=== PATIENT | female | born 1960 | race Caucasian/White ===

== ENCOUNTER 2021-10-13 06:13 | Outpatient (REF) | payer MEDICARE, MEDICAID, SELFPAY ==
[2021-10-13 06:33] LABS: MANUAL DIFF FLAG NO
[2021-10-13 07:26] LABS: Basophils Absolute Auto 0.1 X10*3/uL (0.0-0.2); Basophils Percent Auto 0.6 % (0-2); Eosinophils Absolute Auto 0.3 X10*3/uL (0.0-0.4); Eosinophils Percent Auto 3.3 % (0-4); Hematocrit 43.5 % (37.0-47.0); Hemoglobin 13.9 g/dl (12.0-16.0); Imm Gran Abs Auto 0.03 X10*3/uL (0.00-0.03); Imm Gran Pct Auto 0.4 % (0.0-0.4); Lymphocytes Absolute Auto 2.6 X10*3/uL (1.2-4.9); Lymphocytes Percent Auto 32.1 % (20-40); Mean Corpuscular Volume 87.7 fL (80.0-98.0); Mean Platelet Volume 9.9 fL (9.4-12.3); Monocytes Absolute Auto 0.7 X10*3/uL (0.1-1.2); Monocytes Percent Auto 8.1 % (2-11); Neutrophils Absolute Auto 4.4 x10*3/uL (2.0-8.3); Neutrophils Percent Auto 55.5 % (45-73); Platelet Count 387 X10*3/uL (160-400); Red Blood Count 4.96 X10*6/uL (4.20-5.50); Red Cell Distribution Width 13.3 % (11.0-16.0)
[2021-10-13 07:30] LABS: Estimated Average Glucose 189 mg/dL; Hemoglobin A1c % 8.2 %
[2021-10-13 07:50] LABS: Creatinine Urine 202.93 mg/dL; Microalbum/Creatinine Ratio Ur 10.3 ug/mg cr
[2021-10-13 07:54] LABS: Alanine Aminotransferase 42 U/L (0-31); Albumin Level 4.3 g/dL (3.5-5.0); Alkaline Phosphatase 97 U/L (39-117); Anion Gap 14 (12-20); Aspartate Amino Transferase 29 U/L (5-31); Blood Urea Nitrogen 14 mg/dL (9-16); Carbon Dioxide 27 mmol/L (22-29); Chloride 105 mmol/L (96-108); Cholesterol 187 mg/dL; Estimated Glomerular Filt Rate > 60; Glucose Fasting 168 mg/dL (60-99); HDL Cholesterol 43 mg/dL; LDL Cholesterol Calculated 96 mg/dl; Sodium 141 mmol/L (135-145); Total Protein 7.6 g/dL (6.5-8.0); Triglycerides 241 mg/dL
[2021-10-19 15:36] LABS: Levetiracetam Keppra <1.0 mcg/mL (12.0-46.0)
== END 2021-10-13 06:14 | disposition home or self-care (01) ==
LOC: HO.LAB 06:13
PROVIDERS: PCP Nurse Practitioner Family; Visit Provider Nurse Practitioner Family
DX: I10 Essential (primary) hypertension (principal); K21.9 Gastro-esophageal reflux disease without esophagitis; E78.5 Hyperlipidemia, unspecified; E11.9 Type 2 diabetes mellitus without complications; E78.00 Pure hypercholesterolemia, unspecified; Z91.09 Other allergy status, other than to drugs and biological substances; Z51.81 Encounter for therapeutic drug level monitoring; Z79.899 Other long term (current) drug therapy
CPT/HCPCS: 36415; 80053; 80061; 80177; 82043; 83036; 85025

== ENCOUNTER 2024-11-24 09:32 | Outpatient (REF) | payer MEDICARE, SELFPAY ==
[2024-11-24 09:55] LABS: MANUAL DIFF FLAG NO
--- OUTSIDE RECORDS SUMMARY | 2024-11-24 10:41 | XMS_ITS | Clinical Summary ---
Author Organization [facility] [employer] [facility] it Address [address] [place] [address] Care Team Providers Care Radiologic Electronic Specialist Name Role Phone Shyann Valdez MD Primary Care Provider Social History Tobacco Use Types Packs/Day Years Used Date Smoking Tobacco: Never Assessed Comments Unknown Sex and Gender Information Value Date Recorded Sex Assigned at Not on file Legal Sex Female 8:25 AM EST Gender Identity Not on file Sexual Orientation Not on file Plan of Treatment Health Maintenance Due Date Last Done Comments Breast Cancer Screening 1960 Diabetes: Annual GFR (Glomer ular Filtration Rate) 1960 COVID-19 Vaccine (#1) 1963 Diabetes: Annual Foot Exam 02/03/1968 Diabetes: Annual Retina Eye Exam 02/03/1968 DTaP,Tdap,and Td Vaccines (1 - Tdap) 1977 Pneumococcal Vaccine: 50+ Ye ars (1 of 2 - PCV) 1977 Zoster Vaccines (1 of 2) 1977 RSV Immunization Adult Patie nts (1 - Risk 60-74 years 1-dose series) 2018 Cholesterol Screening (Lipid Panel) 07/16/2022 Colorectal Cancer Screening: Colonoscopy 07/16/2022 Depression Screening 07/16/2022 Hepatitis C Screening 07/16/2022 Osteoporosis Screening (Bone Density Screening) 07/16/2022 Social Influencers of Health Screening 07/16/2022 Diabetes: Annual Urine Albumin-Creatinine Ratio (uACR) 08/06/2022 Diabetes: Blood Sugar Contro l Test (HGBA1C) 08/06/2022 Falls Risk Assessment 2023 Influenza Vaccine (Season Ended) 2025 HIB Vaccines Aged Out No longer eligi ble based on patient's age to complete this topic HPV Vaccines Aged Out No longer eligi ble based on patient's age to complete this topic Hepatitis A Vaccines Aged Out No long er eligible based on patient's age to complete this topic Hepatitis B Vaccines Aged Out No long er eligible based on patient's age to complete this topic IPV Vaccines Aged Out No longer eligi ble based on patient's age to complete this topic MMR Vaccines Aged Out No longer eligi ble based on patient's age to complete this topic Meningococcal ACWY Vaccine Aged Out N o longer eligible based on patient's age to complete this topic Meningococcal B Vaccine Aged Out No l onger eligible based on patient's age to complete this topic RSV Immunization Patients Un kymberly 20 months Aged Out No longer eligible b ased on patient's age to complete this topic Varicella Vaccines Aged Out No longer eligible based on patient's age to complete this topic Care Teams Radiologic Electronic Specialist Relationship Specialty Start Date End Date Shyann Valdez MD [address] [place] [address] , [address] [facility] D/B/A: [facility] MOJGAN Bolanos PCP - General Internal Medicine 01/19/17
--- OUTSIDE RECORDS SUMMARY | 2024-11-24 10:41 | XMS_ITS | Clinical Summary ---
Author Organization [facility] Address [address] [place] [address] Care Team Providers Care Residential Manager Name Role Phone Shyann Barrett MD Primary Care Provid er Allergies Active Allergy Reactions Criticality Noted Date Comments Aspirin 02/22/2017 Latex 02/22/2017 Medications Medication Sig Dispensed Refills Start Date End Date Status oxyCODONE-acetaminoph en (PERCOCET) 5-325 MG per tablet Take 1 tablet by mouth every 4 (four) hours as needed for pain. 0 Active glipiZIDE (GLUCOTROL) tablet 10 mg Take 10 mg by mouth 2 (two) times a day before breakfast and dinner. 0 Active clonazePAM (KLONOPIN) 0.5 MG tablet Take 0.5 mg by mouth 2 (two) times a day as needed for anxiety. 0 Active prazosin (MINIPRESS) 2 MG capsule Take 2 mg by mouth every night at bedtime. 0 Active sertraline (ZOLOFT) 50 MG tablet Take 50 mg by mouth daily. 0 Active montelukast (SINGULAIR) 10 MG tablet Take 10 mg by mouth every night at bedtime. 0 Active levETIRAcetam (KEPPRA) 750 MG tablet Take 750 mg by mouth 2 (two) times a day. 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 Seizure disorder 02/22/2017 Anxiety 02/22/2017 Moderate episode of recurrent major depressive d isorder 02/22/2017 Moderate persistent asthma without complication 02/22/2017 Type 2 diabetes mellitus wit hout complication, without long-term current use of insulin 02/22/2017 Social History Tobacco Use Types Packs/Day Years Used Date Smoking Tobacco: Never Smokeless Tobacco: Never Alcohol Use Standard Drinks/Week Comments No 0 (1 standard drink = 0.6 oz pur e alcohol) Sex and Gender Information Value Date Recorded Sex Assigned at Not on file Gender Identity Not on file Sexual Orientation Not on file Last Filed Vital Signs Vital Sign Reading Time Taken Comments Blood Pressure 117/62 02/22/2017 3:08 PM EDT Pulse 69 02/22/2017 3:08 PM EDT Temperature - - Respiratory Rate - - Oxygen Saturation - - Inhaled Oxygen Concentration - - Weight 68.5 kg (151 lb) 02/22/2017 3:08 PM EDT Height 157.5 cm (5' 2 ) 02/22/2017 3:08 PM EDT Body Mass Index 27.62 02/22/2017 3:08 PM EDT Plan of Treatment Health Maintenance Due Date Last Done Comments Hepatitis C Screening 1960 COVID-19 Vaccine (#1) 1963 Pneumococcal Vaccine (1 of 2 - PCV) 02/03/1964 Depression Screening 1970 Preventative Health Evaluation 02/03/1976 DTap / Tdap / Td (1 - Tdap) 1977 Shingrix-Zoster Vaccine (1 of 2) 1977 Colon Cancer Screening (Colonoscopy) 2003 Breast Cancer Screening (Mammogram) 02/03/2008 Fall Risk Assessment 2023 Osteoporosis Screening (DEXA Scan) 2023 Influenza Vaccine (#1) 2024 RSV Adult > 60+ Yrs or Pregn ant (1 - 1-dose 75+ series) 2033 Hepatitis B Vaccines Aged Out No long er eligible based on patient's age to complete this topic RSV Ped < 20 months Aged Out No longe r eligible based on patient's age to complete this topic Care Teams Residential Manager Relationship Specialty Start Date End Date Shyann Barrett MD [address] [place] [address] , [address] [facility] D/B/A: [facility] MOJGAN Bolanos [address] PCP - General Internal Medicine 01/19/17
[2024-11-24 11:04] LABS: Basophils Absolute Auto 0.1 X10*3/uL (0.0-0.2); Basophils Percent Auto 0.7 % (0-2); Eosinophils Absolute Auto 0.2 X10*3/uL (0.0-0.4); Eosinophils Percent Auto 2.7 % (0-4); Hematocrit 40.1 % (37.0-47.0); Hemoglobin 13.1 g/dl (12.0-16.0); Imm Gran Abs Auto 0.01 X10*3/uL (0.00-0.03); Imm Gran Pct Auto 0.1 % (0.0-0.4); Lymphocytes Absolute Auto 2.7 X10*3/uL (1.2-4.9); Mean Corpuscular HGB Conc 32.7 g/dl (31.0-35.0); Mean Corpuscular Hemoglobin 28.6 pg (27.0-33.0); Mean Corpuscular Volume 87.6 fL (80.0-98.0); Mean Platelet Volume 9.8 fL (9.4-12.3); Monocytes Absolute Auto 0.7 X10*3/uL (0.1-1.2); Monocytes Percent Auto 8.5 % (2-11); Neutrophils Absolute Auto 4.5 x10*3/uL (2.0-8.3); Platelet Count 406 X10*3/uL (160-400); Red Blood Count 4.58 X10*6/uL (4.20-5.50); Red Cell Distribution Width 13.1 % (11.0-16.0); White Blood Count 8.1 X10*3/uL (4.8-10.8)
[2024-11-24 11:16] LABS: Estimated Average Glucose 166 mg/dL; Hemoglobin A1C 193.9555 umol/L; Hemoglobin A1c % 7.4 % (<6.0)
[2024-11-24 11:51] LABS: Alanine Aminotransferase 33 U/L (0-31); Albumin Level 4.4 g/dL (3.5-5.0); Alkaline Phosphatase 81 U/L (39-117); Anion Gap 14 (12-20); Aspartate Amino Transferase 29 U/L (5-31); Bilirubin Total 1.4 mg/dL (0.0-1.0); Blood Urea Nitrogen 17 mg/dL (9-16); Calcium 10.2 mg/dL (8.4-10.2); Carbon Dioxide 26 mmol/L (22-29); Chloride 106 mmol/L (96-108); Cholesterol 141 mg/dL (<200); Estimated Glomerular Filt Rate > 60; Glucose Random 120 mg/dL (60-115); HDL Cholesterol 40 mg/dL (>40); LDL Cholesterol Calculated 73 mg/dL (<100); Potassium 5.1 mmol/L (3.3-5.1); Sodium 141 mmol/L (135-145); Total Protein 7.8 g/dL (6.5-8.0); Triglycerides 143 mg/dL (<150)
[2024-11-24 12:07] LABS: Creatinine Urine 217.25 mg/dL; Microalbum/Creatinine Ratio Ur 7.3 ug/mg cr (<30)
== END 2024-11-24 09:33 | disposition home or self-care (01) ==
LOC: HO.LAB 09:32
PROVIDERS: PCP Internal Medicine; Visit Provider Internal Medicine
DX: E11.65 Type 2 diabetes mellitus with hyperglycemia (principal); E78.00 Pure hypercholesterolemia, unspecified; G40.109 Localization-related (focal) (partial) symptomatic epilepsy and epileptic syndromes with simple partial seizures, not intractable, without status epilepticus; I10 Essential (primary) hypertension; J45.909 Unspecified asthma, uncomplicated; Z85.841 Personal history of malignant neoplasm of brain
CPT/HCPCS: 36415; 80053; 80061; 82043; 82570; 83036; 85025

== ENCOUNTER 2024-12-02 15:10 | Outpatient (REF) | payer MEDICARE, SELFPAY ==
--- OUTSIDE RECORDS SUMMARY | 2024-12-02 18:05 | XMS_ITS | Clinical Summary ---
Author Organization [facility] [employer] [facility] it Address [address] [place] [address] Care Team Providers Care Automotive Buyer Name Role Phone Shyann Valdez MD Primary Care Provider [phone] Social History Tobacco Use Types Packs/Day Years [...] age to complete this topic Care Teams Automotive Buyer Relationship Specialty Start Date End Date Shyann Valdez MD [address] [place] [address] , [address] [facility] D/B/A: [facility] MOJGAN oBlanos PCP - General Internal Medicine 01/19/17
--- OUTSIDE RECORDS SUMMARY | 2024-12-02 18:05 | XMS_ITS | Clinical Summary ---
Author Organization [facility] Address [address] [place] [address] Care Team Providers Care High Density Press Operator Name Role Phone Shyann Barrett MD Primary [...] age to complete this topic Care Teams High Density Press Operator Relationship Specialty Start Date End Date Shyann Barrett MD [address] [place] [address] , [address] [facility] D/B/A: [facility] MOJGAN Bolanos [address] PCP - General Internal Medicine 01/19/17
== END 2024-12-02 15:11 | disposition home or self-care (01) ==
LOC: HO.MAMMO 15:10
PROVIDERS: PCP Internal Medicine; Visit Provider Internal Medicine
DX: Z13.89 Encounter for screening for other disorder (principal)

== ENCOUNTER 2024-12-15 10:45 | Outpatient (REF) | payer OTHER, SELFPAY ==
--- NOTE | ~2024-12-15 | US_ITS ---
EXAMINATION: MM DIAGNOSTIC DIGITAL BREAST TOMOSYNTHESIS, BILATERAL Limited right breast ultrasound. CLINICAL INFORMATION: Right breast pain previously, patient states no pain now. COMPARISON: Mammography: Comparison is made with relevant prior exams. TECHNIQUE: Digital breast mammography with tomosynthesis is performed in both the craniocaudal and mediolateral oblique views along with computer-aided detection (CAD). FINDINGS: The breasts are heterogeneously dense, which may obscure small masses (ACR BI-RADS breast composition Category c). Left marker clip. There are no significant masses, abnormal calcifications, or other abnormalities. Targeted color Doppler ultrasound scanning in the area the patient's previous pain in the right breast from 7-11 o'clock demonstrates normal fibroglandular breast tissue. There is no sonographic abnormal findings. Results are provided to the patient at time of visit by the technologist. US/US breast RT limited mamm only IMPRESSION: Left: Marker clip. Benign. Right: No mammographic or sonographic abnormality to account for the patient's previously felt right breast pain. Recommend clinical evaluation and follow-up. ASSESSMENT: BI-RADS BI-RADS 2 - Benign Findings RECOMMENDATION: 1 year F/U This patient's information was entered into a reminder system with a target due date for their next mammogram. Electronically signed by: Gladis Ansari DO 12/15/2024 01:00 PM EDT
--- OUTSIDE RECORDS SUMMARY | 2024-12-15 12:13 | XMS_ITS ---
Author Organization [facility] Billing Info Address [address] [place] [address] [place] [address] Care Team Providers Care Engineer Geophysical Laboratory Name Role Phone MCKENZIE MOON Unavailable [phone] REASON FOR VISIT GERD Problems No Known Problems Encounters Encounter Location Date Provider Diagnosis [id number] [facility] [address] [place] [address] 04/16/2024 MCKENZIE MOON Assessments Encounter Date Diagnosis [...] No Information Progress Notes * ADOLFO PHILLIPSDOB:[birth year] (64 yo F)Acc No.[id number]:04/16/2024 PROGRESS NOTE Patient:?TSE CRISTIANA MONACO Provider:?MCKENZIE MOON MD :1960???Age:64 Y???Sex:Female D ate:04/16/2024 ?CHN#:[id number] Address:[address] [place] [address] [address] [place], [id number] Pcp:Damon Louise Subjective: * Chief Complaints: * ???1. GERD. * ROS:?Review of 14 systems was performed. Patient does not have any symptoms except what has been mentioned in history of present illness. * Medical History:?? Objective: * Vitals:? * Examination: ???General Examination: ?Constitutional:? alert and oriented, comfortable, interacting appropriately.?Derm/Integumentary:?unremarkable.?HEENT:?Head - NC/AT, hearing is grossly normal, PERRL, EOMI bilaterally.?Neck:? supple, no JVD.?Respiratory:? clear to auscultation bilaterally, no wheezes/rhonchi/rales.?Heart:? regular rate and rhythm, normal S1S2, no murmurs, click or rubs.?Chest:? normal shape and expansion, symmetrical.?Gastrointestinal:? soft, non-tender, no organomegaly, bowel sounds are normal.?Musculoskeletal:? normal, Negative for:, edema, varicose veins, stasis dermatitis, Full ROM all joint.?Neurology:? alert and oriented x 3, normal sensation and strength.? Assessment: Plan: * Treatment: * Care Plan Details* * This progress note has not b een verified nor is it considered complete until locked and signed by the provider. Sign off status: Pending * Provider:?MCKENZIE MOON MD Date:?11/2023 Generated for Randal driver/Carrie/eTransmitting on:?12/15/2024 12:13 PM EDT History and Physical Notes * Examination Category [...]
--- OUTSIDE RECORDS SUMMARY | 2024-12-15 12:13 | XMS_ITS | Clinical Summary ---
Author Organization [facility] Address [address] [place] [address] Care Team Providers Care Manager Room Name Role Phone Shyann Valdez MD Primary Care Provider [phone] Social History Tobacco Use Types Packs/Day Years Used Date Smoking Tobacco: Never Assessed Comments Unknown Sex and Gender Information Value Date Recorded Sex Assigned at Not on file Legal Sex Female 8:25 AM EST Gender Identity Not on file Sexual Orientation Not on file Plan of Treatment Health Maintenance Due Date Last Done Comments Breast Cancer Screening 1960 DTaP,Tdap,and Td Vaccines (1 - Tdap) 1977 Pneumococcal Vaccine: 50+ Ye ars (1 of 1 - PCV) 02/03/2008 Zoster Vaccines (1 of 2) 02/03/2008 COVID-19 Vaccine ( - 2023-2 5 season) 2024 Influenza Vaccine (Season Ended) 2025 RSV Immunization Adult Patie nts (1 - 1-dose 75+ series) 2033 HIB Vaccines Aged Out No longer eligi [...] age to complete this topic Care Teams Manager Room Relationship Specialty Start Date End Date Shyann Valdez MD [address] [facility] , [address] [facility] D/B/A: [facility] MOJGAN Bolanos PCP - General Internal Medicine 01/19/17
--- OUTSIDE RECORDS SUMMARY | 2024-12-15 12:13 | XMS_ITS | Patient Health Record ---
Author Organization [facility] Billing Info Address [address] [place] [address] [place] [address] Care Team Providers Care Surveillance Agent Name Role Phone MCKENZIE MOON Unavailable [phone] Allergies Allergen (clinical drug ingredient) Drug/Non Drug Allergy documented on EMR Reaction Allergy Type Onset Date Status aspirin Aspirin throat swelling Drug Allergy A ctive Reason For Referral Reason GERD Diagnosis 1 Acute gastritis with out hemorrhage, unspecified gastritis type (K29.00) Referring Provider First Name AMARILYS Referring Provider Last Name MATTHIEU Referring Provider Speciality General Pr actice Referred Organization [id number] [facility] Referred Provider MCKENZIE MOON Referred Address [address],[place], [place],[address], Referred Provider Specialty Gastroentero logy General Notes LA HENDERSON 02/28/20 11:46:08 AM >, LA HENDERSON 05/14/2024 11:39:21 AM >Patient did not want to reschedule Referral Priority Routine Medications Medication SIG (Take, Route, Frequency, Duration) Notes Start Date End Date Status Vinita 3-6-9 Complex - as directed Orally Active Calcium & Magnesium Carbonates Active GlipiZIDE 10 MG 1 tablet 30 minutes before breakfast Orally Once a day for 30 day(s) Active Zyrtec Allergy 10 MG 1 tablet as needed Orally Once a day for 30 day(s) Active Keppra 500 MG 1 tablet Orally ever y 12 hrs for 30 day(s) Active Montelukast Sodium 10 MG 1 tablet Orally Once a day for 30 day(s) Active Social History Tobacco Use: Social History Observation Description Date Details (start date - stop date) Never Smoker NA - NA Tobacco Status: Question Answer Notes Patient is a never smoker Problems No Known Problems Assessments Encounter Date Diagnosis (ICD Code) Assessment [...] comprehensive and organized approach to patient care 04/16/2024 Other All of the lisbet gnoses [...] approach to patient care Plan Of Treatment Pending Test Test Name Order Date MRI PELVIS W/O CONTRAST(BRHD-PEL) 2020 Insurance Providers Payer Name Payer Address Payer Phone Subscriber Number Group Number Insured Name Patient Relationship to Insured Coverage Start Date Coverage End Date [employer] H[employer] MEDICARE ADVG PLAN [address] [place], [place] [id number] ADOLFO PHILLIPS Self - patient is the insured [place] [address] [facility] JOCELIN LIGHT [id number] ADOLFO PHILLIPS Self - patient is the insured Medical (General) History Medical History History ICD Code diabetes: Hemoglobin A1c about 7 asthma: Well-controlled arthritis brain cancer Seizures: No activity since brain tumor removed Surgical History Surgery Date(Month/Year) brain tumor
--- OUTSIDE RECORDS SUMMARY | 2024-12-15 12:14 | XMS_ITS ---
Author Organization [facility] Billing Info Address [address] [place] [address] [place] [address] Care Team Providers Care Ball Shagger Name Role Phone MCKENZIE MOON Unavailable [phone] REASON FOR VISIT Hospital Follow Up Problems No Known Problems Encounters Encounter Location Date Provider Diagnosis [id number] [facility] [address] [place] [address] 02/20/2024 MCKENZIE MOON Assessments Encounter Date Diagnosis [...] Notes * ADOLFO PHILLIPSDOB:[birth year] (64 yo F)Acc No.[id number]:02/20/2024 PROGRESS NOTE Patient:?CRISTIANA PHILLIPS Provider:?MCKENZIE MOON MD :1960???Age:64 Y???Sex:Female D ate:02/20/2024 ?CHN#:[id number] Address:[address] [place] [address] [address] [place], [id number] Pcp:Damon Louise Subjective: * Chief Complaints: * ???1. Hospital Follow Up. * ROS:?Review of 14 systems was performed. [...] off status: Pending * Provider:?MCKENZIE MOON MD Date:?05/2024 Generated for Randal driver/Carrie/eTmichellesmitting on:?12/15/2024 12:13 PM EDT History and Physical [...]
--- OUTSIDE RECORDS SUMMARY | 2024-12-15 12:14 | XMS_ITS | Patient Health Record ---
Author Organization [facility] Address [address] [place] [address] Care Team Providers Care Die Operator Name Role Phone Tiarra Lanier Primary Care Provider UnavailJason Madrid Unavailable [phone] Reason For Referral No Information Encounters Encounter Location Date Provider Diagnosis [facility] [address] [place] [address] 09/17/2024 Jason Fraser Plan Of Treatment Next Appt Details Provider Name:Jason Fraser , 01/21/2025 02:20:00 PM, [address], [address], [place], [address], Insurance Providers Payer Name Payer Address Payer Phone Subscriber Number Group Number Insured Name Patient Relationship to Insured Coverage Start Date Coverage End Date [facility] [address] [place] [address] [id number] CARMENCITA DONADOLFO THOMAS Self - patient is the insured MEDICARE OF [place] [address] [place] [id number] TSE ADOLFO MONACO Self - patient is the insured
--- OUTSIDE RECORDS SUMMARY | 2024-12-15 12:14 | XMS_ITS | Clinical Summary ---
Author Organization [facility] Address [address] [place] [address] Care Team Providers Care Supervisor Engraving Name Role Phone Shyann Barrett MD Primary [...] age to complete this topic Care Teams Supervisor Engraving Relationship Specialty Start Date End Date Shyann Barrett MD [address] [place] [address] , [address] [facility] D/B/A: [facility] MOJGAN Bolanos [address] PCP - General Internal Medicine 01/19/17
--- OUTSIDE RECORDS SUMMARY | 2024-12-15 12:14 | XMS_ITS | Patient Health Record ---
Author Organization [employer] [facility] Address [address] [place], [place] [address] Support Name Relationship Address Phone Ann Corona Guarantor Unknown Unavail able Reason For Referral No Information Problems Problem Type SNOMED Code ICD Code Onset Dates Problem Status W/U Status Risk Notes Problem Lumbar radiculopathy (165453048) Lumbar radiculopathy (M54.16) 11/29/19 18 Active confirmed Problem Abdominal pain (38943411) Abdominal pain (R10.9) 11/29/19 Active confirmed Problem Foot pain (27049120) Foot pain (M79.673) 11/29/19 Active confirmed Problem Lumbago with sciatica (371790117) Lumbago with sciatica (M54.40) 11/29/19 18 Active confirmed Problem Pain in lumbar spine (finding) (477439552) Lumbar spine pain (M54.5) 11/29/19 Active confirmed Problem Back pain (979837675) Back pain (M54.9) 11/29/19 Active confirmed Problem Lumbago (098620601) Lumbago (M54.5) 11/29/19 18 Active confirmed Plan Of Treatment No Information Insurance Providers Payer Name Payer Address Payer Phone Subscriber Number Group Number Insured Name Patient Relationship to Insured Coverage Start Date Coverage End Date [employer]. [address] [address] [place] [address] [id number] Ann Corona Self - patient is the insured Medical (General) History Surgical History Surgery Date(Month/Year) Brain Surgery
--- OUTSIDE RECORDS SUMMARY | 2024-12-15 12:14 | XMS_ITS ---
Author Organization [facility] Address [address] [place] [address] Care Team Providers Care Collections Director Name Role Phone Riddhinaomi Tiarra Primary Care Provider Unavailab Jason Cardona [phone] REASON FOR VISIT called patient 3 times and no answer Encounters Encounter Location Date Provider Diagnosis [facility] [address] [place] [address] 09/17/2024 Jason rFaser Plan Of Treatment Next Appt Details Provider Name:Jason Fraser , 01/21/2025 02:20:00 PM, [address], [address], [place], [address], Progress Notes * TSE ADOLFO MONACODOB:[birth year] (64 yo F)Acc No.[id number]:09/17/2024 Patient:?CRISTIANA PHILLIPS :1960???Age:64 Y???Sex:Female Address:[address] [place] [address] [address], [place], [address] * true * Date:? Generated for Laverni neisha/Carrie/eTransmitting on:?12/15/2024 12:14 PM EDT
== END 2024-12-15 10:46 | disposition home or self-care (01) ==
LOC: HO.MAMMO 10:45
PROVIDERS: PCP Internal Medicine; Visit Provider Internal Medicine
DX: N64.4 Mastodynia (principal)
CPT/HCPCS: 76642; 77062; 77066

== ENCOUNTER → 2024-12-15 11:30 | Outpatient (BNV) | payer OTHER, SELFPAY | PROVIDERS: PCP Internal Medicine; Visit Provider Internal Medicine | DX: N64.4 Mastodynia (principal) | CPT/HCPCS: 76642; 77066; G0279 ==

== ENCOUNTER 2025-02-23 09:40 | Outpatient (REF) | payer OTHER, SELFPAY ==
--- OUTSIDE RECORDS SUMMARY | 2025-02-23 10:11 | XMS_ITS | Patient Health Record ---
Author Organization [facility] Billing Info Address [address] [place] [address] [place] [address] Care Team Providers Care Director Business Travel Name Role Phone MCKENZIE MOON Unavailable [phone] Allergies Allergen (clinical drug ingredient) Drug/Non Drug Allergy documented on EMR Reaction Allergy Type Onset Date Status aspirin Aspirin throat swelling Drug Allergy A ctive Reason For Referral Reason GERD Diagnosis 1 Acute gastritis with out hemorrhage, unspecified gastritis type (K29.00) Referring Provider First Name AMARILYS Referring Provider Last Name MATTHIEU Referring Provider Speciality General Pr actice Referred Organization [id number] [facility] Referred Provider MCKENZIE MOON Referred Address [address],[place], [place],[address], Referred Provider Specialty Gastroentero logy General Notes LA HENDERSON 02/28/20 11:46:08 AM >, LA HENDERSON 05/14/2024 11:39:21 AM >Patient did not want to reschedule Referral Priority Routine Medications Medication SIG (Take, Route, Frequency, Duration) Notes Start Date End Date Status [place] 3-6-9 Complex - as directed Orally Active [...] patient care Plan Of Treatment No Information Insurance Providers Payer Name Payer Address Payer Phone Subscriber Number Group Number Insured Name Patient Relationship to Insured Coverage Start Date Coverage End Date [employer] H[employer] MED[employer]ARE AD[employer]G PLAN [address] [place], [place] [id number] ADOLFO PHILLIPS Self - patient is the insured [place] [address] [place], [place] [id number] ADOLFO PHILLIPS Self - patient is the insured Medical (General) History Medical History History ICD Code diabetes: Hemoglobin A1c about 7 asthma: Well-controlled arthritis brain cancer Seizures: No activity since brain tumor removed Surgical History Surgery Date(Month/Year) brain tumor
--- OUTSIDE RECORDS SUMMARY | 2025-02-23 10:11 | XMS_ITS | Clinical Summary ---
Author Organization [facility] Address [address] [place] [address] Care Team Providers Care New Accounts Banking Representative Name Role Phone Shyann Valdez MD Primary Care Provider [phone] Social History Tobacco Use Types Packs/Day Years [...] - 2023-2 5 season) 2024 Influenza Vaccine (#1) 2025 RSV Immunization Adult Patie nts (1 [...] age to complete this topic Care Teams New Accounts Banking Representative Relationship Specialty Start Date End Date Shyann Valdez MD [address] [facility] , [address] [facility] D/B/A: [facility] Groveratisteffi In Internal Medicine MOJGAN Bolanos PCP - General Internal Medicine 01/19/17
--- OUTSIDE RECORDS SUMMARY | 2025-02-23 10:12 | XMS_ITS | Patient Health Record ---
Author Organization [employer] [facility] Address [address] [place], [place] [address] Support Name Relationship Address Phone Ann Corona Guarantor Unknown Unavail able Reason For Referral No Information Problems Problem Type SNOMED Code ICD Code Onset Dates Problem Status W/U Status Risk Notes Problem Lumbar radiculopathy (417364141) Lumbar radiculopathy (M54.16) 11/29/19 18 Active confirmed Problem Abdominal pain (16638453) Abdominal pain (R10.9) 11/29/19 Active confirmed Problem Foot pain (00437684) Foot pain (M79.673) 11/29/19 Active confirmed Problem Lumbago with sciatica (599320534) Lumbago with sciatica (M54.40) 11/29/19 18 Active confirmed Problem Pain in lumbar spine (finding) (825420229) Lumbar spine pain (M54.5) 11/29/19 Active confirmed Problem Back pain (531435941) Back pain (M54.9) 11/29/19 Active confirmed Problem Lumbago (377322363) Lumbago (M54.5) 11/29/19 18 Active confirmed Plan Of Treatment No Information Insurance Providers Payer Name Payer Address Payer Phone Subscriber Number Group Number Insured Name Patient Relationship to Insured Coverage Start Date Coverage End Date [employer]. [address] [address] [place] [address] [id number] Ann Corona Self - patient is the insured Medical (General) History Surgical History Surgery Date(Month/Year) Brain Surgery
--- OUTSIDE RECORDS SUMMARY | 2025-02-23 10:12 | XMS_ITS | Clinical Summary ---
Author Organization [employer] Address [address] [facility] 7t [place] [address] Care Team Providers Care Assistant Professor Of Dietetics Name Role Phone Unavailable Primary Care Provider Unavailabl e Encounters Date Type Department Care Team Description 12/29/2024 9:00 AM EDT Office Visit [facility] [address] [place] [address] Melchor, Darya, ANNALEE Presbyopia (Primary Dx) 12/29/2024 Travel from Last 3 Months Social History Tobacco Use Types Packs/Day Years Used Date Smoking Tobacco: Never Assessed Comments Unknown Sex and Gender Information Value Date Recorded Sex Assigned at Female 06/12/2022 10:17 AM EDT Legal Sex Female 10:17 AM EDT Gender Identity Female 12/03/2024 1:50 PM EDT Sexual Orientation Straight 06/12/2022 10 :17 AM EDT Plan of Treatment Health Maintenance Due Date Last Done Comments CT Colonography 1960 Colonoscopy 1958 Colorectal Cancer Screening 1960 Depression Screening 1960 FIT DNA/Cologuard 1958 FIT 1958 FOBT 1960 SDOH Screening 1960 Sigmoidoscopy 1960 Alcohol/Substance Use Screening 1970 Tobacco Screening 1970 Hepatitis C Screening 02/03/1976 DTaP/Tdap/Td Vaccines (1 - Tdap) 1977 Pneumococcal Vaccine: 50+ Ye ars (1 of 2 - PCV) 1977 Mammogram 1998 Zoster Vaccines (1 of 2) 02/03/2008 RSV Patients and Pa tients Aged 60 years or older (1 - Risk 60-74 years 1-dose series) 2018 COVID-19 Vaccine ( - 2023-2 5 season) 2024 Influenza Vaccine (#1) 2025 HIB Vaccines Aged Out No longer [...] patient's age to complete this topic Meningococcal Vaccine Aged Out No brent bib eligible based on patient's age to complete this topic RSV under 20 months Aged Out No longe r eligible based on patient's age to complete this topic Rotavirus Vaccines Aged Out No longer eligible based on patient's age to complete this topic Insurance [facility] STANDARD
--- OUTSIDE RECORDS SUMMARY | 2025-02-23 10:12 | XMS_ITS | Clinical Summary ---
Author Organization [facility] Address [address] [place] [address] Care Team Providers Care Manager Math Name Role Phone Shyann Barrett MD Primary [...] Screening (DEXA Scan) 2023 Influenza Vaccine (#1) 2025 RSV Adult > 60+ Yrs or Pregn ant (1 - 1-dose 75+ series) 2033 Hepatitis B Vaccines Aged Out No long er eligible based on patient's age to complete this topic RSV Ped < 20 months Aged Out No longe r eligible based on patient's age to complete this topic Care Teams Manager Math Relationship Specialty Start Date End Date Shyann Barrett MD [address] [place] [address] , [address] [facility] D/B/A: [facility] MOJGAN Bolanos [address] PCP - General Internal Medicine 01/19/17
--- OUTSIDE RECORDS SUMMARY | 2025-02-23 10:12 | XMS_ITS | Patient Health Record ---
Author Organization [facility] Address [address] [place] [address] Care Team Providers Care Contact Lens Polisher Name Role Phone Riddhinaomi Tiarra Primary Care Provider Jason Marie [phone] Allergies Allergen (clinical drug ingredient) Drug/Non Drug Allergy documented on EMR Reaction Allergy Type Onset Date Status aspirin Aspirin Unknown Drug Allergy Active Reason For Referral No Information Medications Medication SIG (Take, Route, Frequency, Duration) Notes Start Date End Date Status Januvia 50 MG as directed Orally 01/21/2025 Active Trelegy Ellipta 100-62.5-25 MCG/ACT 1 puff Inhalation Once a day Active Atorvastatin Calcium 40 MG 1 tablet Oral ly Once a day Active glipiZIDE ER 10 MG 1 tablet with breakf ast Orally Once a day Active Keppra 250 MG 1 tablet Orally ever y 12 hrs Active Montelukast Sodium 10 MG 1 tablet Orally Once a day Active Immunizations Vaccine Route Administration Date Status Comme nts Influenza Unknown 01/21/2025 Refused Social History Tobacco Use: Social History Observation Description Date Details (start date - stop date) Never Smoker NA - NA Tobacco Control (Standard) Question Answer Notes Tobacco use: Nonsmoker AUDIT-C (Standard) Question Answer Notes Did you have a drink containing alcohol in the p ast year? No Points 0 Interpretation Negative Problems Problem Type SNOMED Code ICD Code Onset Dates Problem Status W/U Status Risk Notes Problem Colon cancer screening (Z12.11) Active confirmed Problem Preprocedural examination (394082620917498) Preprocedural examination (Z01.818) Active confirmed Problem History of polyp of colon (situation) (026854538) History of colon polyps (Z86.0100) Active confirmed Vital Signs Temperature 97.3 degrees Fahrenheit 01/21/2025 Blood pressure diastolic 01 mm Hg 01/21/2025 Height 62 in 01/21/2025 Blood pressure systolic 001 mm Hg 01/21/2025 Weight 149.6 lbs 01/21/2025 BMI 27.36 kg/m2 01/21/2025 Encounters Encounter Location Date Provider Diagnosis [facility] [address] [place] [address] 01/21/2025 Jason Fraser History of colon dustin yps Z86.0100 ; Colon cancer screening Z12.11 and Preprocedural examination Z01.818 [facility] [address] [place] [address] 09/17/2024 Jason Fraser [facility] [address] [place] [address] 01/21/2025 Jason Fraser Assessments Encounter Date Diagnosis (ICD Code) Assessment Notes Treatment Notes Treatment Clinical Notes Section Notes 01/21/2025 Colon cancer screening (ICD-10 - Z12.11) You need another colonoscopy in 02/2028 Overall, Ann appears quite well and is not having any new or worrisome GI complaints. Based on her clinical history of a colonoscopy just 2 years ago with removal of 1 polyp and being advised by that physician to repeat an exam in 5 years, as well as the fact that she is not having any new or worrisome GI complaints and does not have any family history of colon cancer, I have advised her that we should repeat the colonoscopy in 2027 for further screening rather than this year. I shall put her in our office recall for a reminder letter in 2027. This recommendation would be supported by the current colorectal cancer screening guidelines. However, we did review that certainly if anything changes such as a change in bowel habits or signs of bleeding she should contact me for reevaluation. I did advise her to see me otherwise in the interim on an as needed basis. Ann was comfortable with this plan. Thank you again for allowing me to have participated in Ann's care. Please do not hesitate to contact me if I can be of any further assistance in the future.. 01/21/2025 History of colon polyps (ICD-10 - Z86.0100) Overall, Ann appears quite well and is not having any new or worrisome GI complaints. Based on her clinical history of a colonoscopy just 2 years ago with removal of 1 polyp and being advised by that physician to repeat an exam in 5 years, as well as the fact that she is not having any new or worrisome GI complaints and does not have any family history of colon cancer, I have advised her that we should repeat the colonoscopy in 2027 for further screening rather than this year. I shall put her in our office recall for a reminder letter in 2027. This recommendation would be supported by the current colorectal cancer screening guidelines. However, we did review that certainly if anything changes such as a change in bowel habits or signs of bleeding she should contact me for reevaluation. I did advise her to see me otherwise in the interim on an as needed basis. Ann was comfortable with this plan. Thank you again for allowing me to have participated in Ann's care. Please do not hesitate to contact me if I can be of any further assistance in the future.. 01/21/2025 Preprocedural examination (ICD-10 - Z01.818) Overall, Ann appears quite well and is not having any new or worrisome GI complaints. Based on her clinical history of a colonoscopy just 2 years ago with removal of 1 polyp and being advised by that physician to repeat an exam in 5 years, as well as the fact that she is not having any new or worrisome GI complaints and does not have any family history of colon cancer, I have advised her that we should repeat the colonoscopy in 2027 for further screening rather than this year. I shall put her in our office recall for a reminder letter in 2027. This recommendation would be supported by the current colorectal cancer screening guidelines. However, we did review that certainly if anything changes such as a change in bowel habits or signs of bleeding she should contact me for reevaluation. I did advise her to see me otherwise in the interim on an as needed basis. Ann was comfortable with this plan. Thank you again for allowing me to have participated in Corinas care. Please do not hesitate to contact me if I can be of any further assistance in the future.. Plan Of Treatment No Information Insurance Providers Payer Name Payer Address Payer Phone Subscriber Number Group Number Insured Name Patient Relationship to Insured Coverage Start Date Coverage End Date [facility] [address] [address] [place] [phone] [id number] ANN PHILLIPS Self - patient is the insured MEDICAID [facility] [address] [place] [address] [id number] ANN PHILLIPS Self - patient is the insured Medical (General) History Medical History History ICD Code Glioblastoma NIDDM Hyperlipidemia GERD Denies ID,CVA,,renal disease Asthma Seizures Negative colonoscopy in 2010 at [facility] She reports a colonoscopy in [place] in 2022 with removal of a polyp and was told by that doctor to have a repeat colonoscopy in 2027
[2025-02-23 11:08] LABS: Hemoglobin A1C 188.6084 umol/L; Total Hemoglobin (HGBA1C) 3380.8135 umol/L
[2025-02-23 12:00] LABS: Alanine Aminotransferase 33 U/L (0-31); Albumin Level 4.5 g/dL (3.5-5.0); Alkaline Phosphatase 75 U/L (39-117); Anion Gap 12 (12-20); Aspartate Amino Transferase 27 U/L (5-31); Blood Urea Nitrogen 11 mg/dL (9-16); Calcium 9.5 mg/dL (8.4-10.2); Carbon Dioxide 27 mmol/L (22-29); Chloride 109 mmol/L (96-108); Estimated Glomerular Filt Rate > 60; Potassium 5.0 mmol/L (3.3-5.1); Sodium 143 mmol/L (135-145); Total Protein 7.5 g/dL (6.5-8.0)
== END 2025-02-23 09:41 | disposition home or self-care (01) ==
LOC: HO.LAB 09:40
PROVIDERS: PCP Internal Medicine; Visit Provider Internal Medicine
DX: E11.9 Type 2 diabetes mellitus without complications (principal); G40.109 Localization-related (focal) (partial) symptomatic epilepsy and epileptic syndromes with simple partial seizures, not intractable, without status epilepticus; E78.00 Pure hypercholesterolemia, unspecified; I10 Essential (primary) hypertension; J45.909 Unspecified asthma, uncomplicated
CPT/HCPCS: 36415; 80053; 83036

== ENCOUNTER 2025-05-29 07:50 | Outpatient (REF) | payer OTHER, SELFPAY ==
--- OUTSIDE RECORDS SUMMARY | 2025-05-29 07:53 | XMS_ITS | Clinical Summary ---
Author Organization [facility] Address [address] [place] [address] Care Team Providers Care Enamel Dipper Name Role Phone Shyann Valdez MD Primary Care Provider [phone] Social History Tobacco Use Types Packs/Day Years [...] 02/03/2008 Zoster Vaccines (1 of 2) 02/03/2008 Depression Screening 08/13/2024 COVID-19 Vaccine (1 - 2023-2 5 season) 2025 Influenza Vaccine (#1) 2025 RSV Immunization Adult [...] age to complete this topic Care Teams Enamel Dipper Relationship Specialty Start Date End Date Shyann Valdez MD [address] [place] [address] , [address] [facility] D/B/A: [facility] Groveratisteffi In Internal Medicine MOJGAN Bolanos PCP - General Internal Medicine 01/19/17
--- OUTSIDE RECORDS SUMMARY | 2025-05-29 07:53 | XMS_ITS | Clinical Summary ---
Author Organization [facility] Address [address] [place] [address] Care Team Providers Care Infantry Officer Name Role Phone Shyann Barrett MD Primary [...] age to complete this topic Care Teams Infantry Officer Relationship Specialty Start Date End Date Shyann Barrett MD [address] [place] [address] , [address] [facility] D/B/A: [facility] MOJGAN Bolanos [address] PCP - General Internal Medicine 01/19/17
--- OUTSIDE RECORDS SUMMARY | 2025-05-29 07:53 | XMS_ITS | Clinical Summary ---
Author Organization [employer] Address [address] [facility] 7t [place] [address] Care Team Providers Care Utility Helicopter Repairer Name Role Phone Unavailable Primary Care Provider Unavailabl e Encounters Date Type Department Care Team Description 04/23/2025 Telephone [facility] [address] [place] [address] Chris Sheikh MD 04/06/2025 Telephone [facility] [address] [place] [address] Chris Sheikh MD [facility] - New Patient Assistance from Last 3 Months Social History Tobacco [...] 60-74 years 1-dose series) 2018 COVID-19 Vaccine (1 - 2023-2 5 season) 2025 Influenza Vaccine (#1) 2025 HIB Vaccines Aged [...] patient's age to complete this topic Insurance [facility] STANDARD [facility] DUAL COMPLETE
[2025-05-29 09:30] LABS: Alanine Aminotransferase 40 U/L (0-31); Albumin Level 4.5 g/dL (3.5-5.0); Alkaline Phosphatase 87 U/L (39-117); Anion Gap 13 (12-20); Aspartate Amino Transferase 30 U/L (5-31); Blood Urea Nitrogen 12 mg/dL (9-16); Calcium 9.6 mg/dL (8.4-10.2); Carbon Dioxide 26 mmol/L (22-29); Chloride 106 mmol/L (96-108); Estimated Glomerular Filt Rate > 60; Potassium 4.3 mmol/L (3.3-5.1); Sodium 141 mmol/L (135-145); Total Protein 7.3 g/dL (6.5-8.0)
== END 2025-05-29 07:51 | disposition home or self-care (01) ==
LOC: HO.LAB 07:50
PROVIDERS: PCP Internal Medicine; Visit Provider Internal Medicine
DX: E11.65 Type 2 diabetes mellitus with hyperglycemia (principal); E78.00 Pure hypercholesterolemia, unspecified; G40.109 Localization-related (focal) (partial) symptomatic epilepsy and epileptic syndromes with simple partial seizures, not intractable, without status epilepticus; Z68.27 Body mass index [BMI] 27.0-27.9, adult
CPT/HCPCS: 36415; 80053; 83036

== ENCOUNTER 2025-07-22 14:31 | Outpatient (AMB) | payer OTHER, SELFPAY ==
--- OUTSIDE RECORDS SUMMARY | 2024-02-20 08:30 | XMS_ITS ---
Author Organization [facility] Billing Info Address [address] [place] [address] [place] [address] Care Team Providers Care Wire Dropper Name Role Phone MCKENZIE MOON Unavailable [phone] REASON FOR VISIT Hospital Follow Up Problems No Known Problems Encounters Encounter Location Date Provider Diagnosis [id number] [facility] [address] [place] [address] 02/20/2024 MCKENZIE MOON Assessments Encounter Date Diagnosis (ICD Code) Assessment Notes Treatment Notes Treatment Clinical Notes Section Notes 02/20/2024 Other All of the lisbet gnoses were explained. All of the treatment options were discussed. Adverse effects were disclosed. Opportunity was given to ask questions and questions were answered. I advised to call my office if symptoms do not get better, if symptoms recur, or if new symptoms occur. Patient was advised and educated to follow the recommendations made. Adherence and compliance is urged. Failure to comply may result in untoward outcomes. If patient has some issues, problems and difficulties which may potentially lead to noncompliance, patient was advised to contact this office by phone or e-mail. Patient understood and agreed. For all nongastroenterological symptoms/problems patient was advised to consult and seek help from primary care physician to assure more comprehensive and organized approach to patient care Plan Of Treatment No Information Progress Notes * ADOLFO PHILLIPSDOB:[birth year] (65 yo F)Acc No.[id number]:02/20/2024 PROGRESS NOTE Patient: ADOLFO CHAVEZ Provider: Chuck MOON MD :1960 A ge:64 Y S ex:Female Date:02/20/2024 Crow CHEN#:[id number] Address:[address] [place] [address] [place], [id number] Pcp:Damon Louise Subjective: * Chief Complaints: * 1 . Hospital Follow Up. * ROS: R eview of 14 systems was performed. Patient does not have any symptoms except what has been mentioned in history of present illness. * Medical History: Objective: * Vitals: * Examination: G eneral Examination: Constitutional: alert and oriented, comfortable, interacting appropriately. Derm/Integumentary: u nremarkable. HEENT: H ead - NC/AT, hearing is grossly normal, PERRL, EOMI bilaterally. Neck: supple, no JVD. Respiratory: clear to auscultation bilaterally, no wheezes/rhonchi/rales. Heart: regular rate and rhythm, normal S1S2, no murmurs, click or rubs. Chest: normal shape and expansion, symmetrical. Gastrointestinal: soft, non-tender, no organomegaly, bowel sounds are normal. Musculoskeletal: normal, Negative for:, edema, varicose veins, stasis dermatitis, Full ROM all joint. Neurology: alert and oriented x 3, normal sensation and strength. Assessment: Plan: * Treatment: * Care Plan Details* * This progress note has not b een verified nor is it considered complete until locked and signed by the provider. Sign off status: Pending * Provider: Chuck MOON MD Date: 0 02/20/2024 Generated for Randal driver/Carrie/eTransmitting on: 1 09/22/2024 10:55 PM EST History and Physical Notes * Examination Category Sub-Category Detail Notes Category Not es General Examination HEENT: Head - NC/AT , hearing is grossly normal, PERRL, EOMI bilaterally Neck: supple, no JVD Heart: regular rate and rhy thm, normal S1S2, no murmurs, click or rubs Respiratory: clear to auscultatio n bilaterally, no wheezes/rhonchi/rales Gastrointestinal: soft, non-tender, no organomegaly, bowel sounds are normal Constitutional: alert and oriented, comfortable, interacting appropriately Derm/Integumentary: unremarkable Neurology: alert and oriented x 3, normal sensation and strength Chest: normal shape and exp ansion, symmetrical Musculoskeletal: normal, Negative for :, edema, varicose veins, stasis dermatitis, Full ROM all joint
--- OUTSIDE RECORDS SUMMARY | 2024-04-16 08:00 | XMS_ITS ---
Author Organization [facility] Billing Info Address [address] [place], [place] [address] [address] Care Team Providers Care Spot Welder Name Role Phone MCKENZIE MOON Unavailable [phone] REASON FOR VISIT GERD Problems No Known Problems Encounters Encounter Location Date Provider Diagnosis [id number] [facility] [address] [place] [address] 04/16/2024 MCKENZIE MOON Assessments Encounter Date Diagnosis (ICD Code) Assessment Notes Treatment Notes Treatment Clinical Notes Section Notes 04/16/2024 Other All of the lisbet gnoses were [...] Of Treatment No Information Progress Notes * VLAD PHILLIPSPENELOPEDOB:[birth year] (65 yo F)Acc No.[id number]:04/16/2024 PROGRESS NOTE Patient: ADOLFO CHAVEZ Provider: Chuck MOON MD :1960 A ge:64 Y S ex:Female Date:04/16/2024 C APRIL#:[id number] Address:[address] [place] [address] [place], [id number] Pcp:Damon Louise Subjective: * Chief Complaints: * 1 . GERD. * ROS: R eview of 14 systems [...] * Provider: Chuck MOON MD Date: 0 04/16/2024 Generated for Randal driver/Carrie/eTransmitting on: 1 09/22/2024 10:56 PM EST History and Physical Notes * [...]
[2025-07-22 14:37] VITALS: BP 112/64; PULSE 70; RESP 18; O2SAT 98; BMI 26.8
--- NOTE | 2025-07-22 14:37 | MHC.PC.OV ---
Vital Signs 07/22/25 14:37 Height 5 ft 3.5 in Weight 153 lb 8 oz BMI 26.8 BP 112/64 Blood Pressure Location Lt brachial Position Sitting Respiration 18 Pulse 70 Pulse Source Pulse Oximeter Temp Source Temporal Artery Scan Pulse Oximetry (%) 98 Oxygen Delivery Method Room Air Intake Visit Reasons: establish care Intake Note: Patient is a new patient here to establish care for asthma, DM. Transferring care from Dr Del Angel. Medical records have been requested and have received. Project Engineer Required: Yes Project Engineer Name: [id number] Information Interpreted: non-clinical & clinical Grinding Wheel Operator: Not Required per policy Accompanied by: Self / Same As Patient Allergies aspirin (Aspirin) Allergy (Mild, Verified 07/22/25 14:49) HYPOTENSION/DIZZY, abdominal pain latex (Latex) Allergy (Mild, Verified 07/22/25 14:49) + SKIN TEST Latex Allergy (Unknown, Uncoded 07/22/25 14:49) Unknown Latex Gloves Allergy (Unknown, Uncoded 07/22/25 14:49) Unknown Medication List - Last Reconciled 07/22/25 by FARIDA Hernandez atorvastatin 20 mg PO DAILY blood sugar diagnostic (Accu-Chek Guide test strips) As directed blood-glucose meter (Accu-Chek Guide Glucose Meter) As directed cetirizine (Allergy Relief (cetirizine)) 10 mg PO DAILY PRN glipizide 10 mg PO BID lancets (Accu-Chek Softclix Lancets) As directed levetiracetam 250 mg PO Q12H montelukast 10 mg PO DAILY omeprazole 20 mg PO DAILY sitagliptin phos-metformin 50-1,000 mg (Janumet) 1 tab PO BID Tobacco use date assessed: 07/22/25 Fall risk assessment: No Falls in past year Last assessed Fall Risk: 07/22/25 Dental Screening Dental Screen Date: 07/22/25 Did you have a dental visit in the last 12 months?: Yes Did you have a dental problem in the last 6 months where you did not have access to dental care?: No Was dental information given to patient?: Patient has dentist HPI establish care HPI Details Previous PCP: Dr. Del Angel last [address] Pena in [facility] [address] Last visit: February, Last PE: same Specialist: Requesting a referral to neurology because she has been taking keppra, for brain surgery, 08/05/2014, at [facility], endocrinology OBGYN: February 2023 in [place], will put in referral to [facility] Past medical history: Medications: Family HX: mother breast cancer, two sisters have breast cancer Problem: The patient is a 65 year old female presenting to [facility]. Her last visit with her previous primary care provider, Dr. Pena, was in February for a physical. The patient has a history of brain surgery performed at [facility], after which she was prescribed Keppra. She would like a referral to a neurologist to reassess the necessity of this medication. The patient has a history of diabetes which is not well-controlled, with a recent A1c of 7.6% in February. She was previously on metformin but experienced stomach upset and was switched to a new medication by her prior provider. She has never seen a dietitian. Her other chronic conditions include hypercholesterolemia, and well-controlled gastroesophageal reflux and environmental allergies. She also has a history of lumbar arthritis, which causes lower back pain, and she experienced a fall from her bed last week without notable injury, but reports pain with walking. Regarding health maintenance, her last Pap smear was in February 2023 in [place]. Her next colonoscopy is due in 2027. She denies ever having a bone density scan. She has a family history of breast cancer in her mother and two sisters. Health Maintenance A referral to INJECTION MOLDING MACHINE TENDER will be placed for continued care, as her last Pap smear was in February 2023. The need for a bone density scan (DEXA) was discussed, and her records will be reviewed to see if one was previously performed. She has declined the flu vaccine. All current medications will be refilled and sent to her preferred pharmacy, [facility] in [place]. A follow-up appointment is scheduled in seven weeks to review lab results and the status of specialist referrals. Social History - The patient lives in a government housing program and reports difficulty crossing the street to the parking lot due to pain when walking. - She reports a fall from bed last week but sustained no injuries. Results - Labs: A CMP from February showed an A1c of 7.6%. lower back pain, arthrtitis fell last week reports that she was diagnosed with lumbar arthritis-wants a letter so that she could park closer in front of the building. [facility] Medical History Hyperlipidemia History of glioma GERD (gastroesophageal reflux disease) Diabetes type 2, controlled Surgical History History of brain surgery Family History Mother Mental health disorder Sister Breast cancer Sister Breast cancer Social History Housing: House Alcohol intake: never Patient Tobacco Use Status: Never used Tobacco e-Cigarette/Vaping Use: Never Used Second Hand Smoke Exposure: No service: No Current occupational status: disabled Cognitive needs: No Hearing needs: No Vision needs: Yes (glasses) Questionnaire PHQ-9 Over the last 2 weeks, how often have you been bothered by any of the following problems? 1. Little interest or pleasure in doing things: nearly every day 2. Feeling down, depressed, or hopeless: not at all 3. Trouble falling or staying asleep, or sleeping too much: nearly every day 4. Feeling tired or having little energy: nearly every day 5. Poor appetite or overeating: more than half the days 6. Feeling bad about yourself - or that you are a failure or have let yourself or your family down: not at all 7. Trouble concentrating on things, such as reading the newspaper or watching television: not at all 8. Moving or speaking so slowly that other people could have noticed. Or the opposite - being so fidgety or restless that you have been moving around a lot more than usual: not at all 9. Thoughts that you would be better off or of hurting yourself in some way: not at all Total score: 11 Depression Screening Interpretation: Positive Depression Screening Done: Yes 16546 - PHQ-9 Billing: Yes Source: Developed by Drs. Jason Ramos, Mary Jane Hughes, Terence Powell and colleagues, with an educational sophia from [employer]. Thrive Questionnaire Date Thrive assessed: 07/22/25 I am a: Patient What is your living situation today?: I have a steady place to live Within the past 12 months, did the food you bought not last and you didn't have the money to get more?: Never true Within the past 12 months, did you worry whether your food would run out before you got money to buy more?: Never true Do you have trouble paying for medicines?: No Do you have trouble getting transportation to medical appointments?: No Do you have trouble paying your heating and electricity bill?: No Do you have trouble taking care of your child, family member or friend?: No Do you have trouble with day-to-day activities such as bathing, preparing meals, shopping, managing finances, etc.?: No Are you currently unemployed and looking for a job?: No Are you interested in more education?: No Please select the resources that you would like help with: None Currently or been in a relationship where the following occur: No concerns reported THRIVE Score: 0 AUDIT C Alcohol Use Questionnaire (AUDIT-C) 1. How often do you have a drink containing alcohol?: Never Total Score: 0 KIEL-7 AMB Questionnaire KIEL-7 Date KIEL - 7 assessed: 07/22/25 Feeling nervous, anxious, or on edge: 0 = Not at all Not being able to stop or control worryin = Not at all Worrying too much about different things: 0 = Not at all Trouble relaxin = Not at all Being so restless that it is hard to sit still: 0 = Not at all Becoming easily annoyed or irritable: 0 = Not at all Feeling afraid as if something awful might happen: 0 = Not at all Total KIEL-7 score (0-4 normal; 5-9 mild; 10-14 moderate; 15-21 severe): 0 Source: Developed by Drs. Jason Ramos, Mary Jane Hughes, Terence Powell and colleagues, with an educational sophia from [employer]. KIEL-7 Assessment Billing KIEL-7 Assessment Tool: KIEL-7 Assessment 94567 Review of Systems Const Denies headache(s) Eyes Reports dry eyes and Denies loss of vision ENT Denies vertigo, Denies dizziness, Denies headache(s) and Denies sore throat Card Denies chest pain, Denies leg edema and Denies lightheadedness Resp Denies cough, Denies hemoptysis and Denies wheezing GI Denies abdominal pain, Denies melena, Denies constipation, Denies diarrhea and Denies vomiting Denies urinary frequency, Denies dysuria and Denies urinary urgency Musc Reports back pain, Denies arthralgias, Denies joint swelling, Denies numbness and Denies tingling Neuro Denies Abnormal speech present, Denies behavioral changes, Denies vertigo, Denies dizziness, Denies headache(s), Denies loss of vision, Denies memory loss, Denies numbness and Denies tingling Psych Denies anxiety, Denies behavioral changes, Denies depression, Denies memory loss and Denies panic attacks Elias/Lymph Denies easy bleeding and Denies easy bruising Aller/Immun Denies wheezing Physical exam (Primary Care) Vital Signs: Last Vital Signs Pulse 70 07/22/25 14:37 Resp 18 07/22/25 14:37 BP 112/64 07/22/25 14:37 Pulse Ox 98 07/22/25 14:37 Oxygen Delivery Method Room Air 07/22/25 14:37 BMI result Body Mass Index 26.8 Tobacco/Smoking Status: Tobacco use Status Tobacco use date assessed 07/22/25 07/22/25 14:44 Patient Tobacco Use Status Never used Tobacco 07/22/25 14:44 e-Cigarette/Vaping Use Never Used 07/22/25 14:44 PHQ-9: PHQ-9 Score PHQ-9: Total score 11 07/22/25 14:50 Depression Screening Interpretation: Positive Thrive Assessment: Date of Thrive Assessment Date Thrive assessed 07/22/25 07/22/25 14:44 Currently or been in a relationship where the following occur: No concerns reported Const General: healthy appearing, no acute distress, alert and awake Nutritional Appearance: well nourished Orientation/consciousness: oriented to person, oriented to place and oriented to time [facility] Ears: TM's normal bilaterally General nose exam: Normal nasal mucous membranes and turbinates present Eyes Conjunctivae: conjunctivae normal Sclerae: sclerae normal Pupils: Equal, round and reactive pupils present Neck Neck: Yes no lymphadenopathy and Yes no JVD Thyroid: Thyroid normal Carotids: no bruits Resp Effort & Inspection: normal respiratory effort and not tachypneic Auscultation: no crackles, no rales, no rhonchi and no wheezes Cardio Rate: regular rate Rhythm: regular rhythm Heart sounds: no murmurs and normal S1 and S2 GI Palpation (GI): Soft to palpation, nontender, no hepatomegaly and no splenomegaly Auscultation: normal bowel sounds General: Yes no CVA tenderness Back/Spine/Pelvis Back: no CVA tenderness Thoracic/Lumbar Spine: No lumbar spinal tenderness Skin General skin exam: no rashes or lesions noted and dry skin Neuro General: oriented to person, oriented to place and oriented to time Cranial nerves: Yes Equal, round and reactive pupils present Speech: No Abnormal speech present Gait exam (Neuro): Normal gait present Motor exam (neuro): no tremor noted Extrem Right upper extremity: full ROM Left upper extremity: full ROM Right lower extremity: full ROM; no edema Left lower extremity: full ROM; no edema Psych Mental Status: mental status grossly normal Speech and movement: Normal speech and movement present Affect: normal affect Attitude: cooperative Thought process: Normal thought process present Coding Level of Care Code New Pt Level 4 (63754) Diagnoses Arthritis of lumbar spine M47.816 Diabetes type 2, controlled E11.9 Gastroesophageal reflux disease, unspecified whether esophagitis present K21.9 Esophagitis presence: esophagitis presence not specified History of glioma Z87.898 Hyperlipidemia, unspecified hyperlipidemia type E78.5 Hyperlipidemia type: unspecified Additional Codes PHQ-9 - 86255 - PHQ-9 Billing: Yes ([id number]) KIEL-7 Assessment Billing - KIEL-7 Assessment Tool: KIEL-7 Assessment 45634 ([id number]) Time Spent (min) 39 Assessment & Plan Assessment & Plan (1) Arthritis of lumbar spine: Code(s): M47.816 - Spondylosis without myelopathy or radiculopathy, lumbar region Category: Medical Plan: The patient reports lower back pain and difficulty walking, which impacts her ability to access her assigned parking. A letter will be written to her housing authority to request a closer parking space. (2) Diabetes type 2, controlled: Code(s): E11.9 - Type 2 diabetes mellitus without complications Category: Medical Plan: The patient's A1c was 7.6% in February, indicating poor control. Though the patient is on glipizide 10mg, sit[place]pton phos-metformin 50-1000mg (Janumet) 1 tab BID. The patient is requesting an endocrinology referral; will place referral and defer to endocrine. (3) GERD (gastroesophageal reflux disease): Code(s): K21.9 - Gastro-esophageal reflux disease without esophagitis Category: Medical Qualifiers: Esophagitis presence: esophagitis presence not specified Qualified Code(s): K21.9 - Gastro-esophageal reflux disease without esophagitis Plan: reinforced diet restriction Do not eat meals or drink carbonated beverages within 3 hr of bedtime Decrease the amount of fried, fatty, and spicy foods to decrease gastric acid production Raise the head of the bed using 4 to 6-inch blocks, especially if nocturnal symptoms are present Lose weight if indicated; avoid tight-fitting clothing, especially around the waist Avoid foods that relax the Lower esophageal sphincter (chocolate, peppermint, high-fat foods etc.,) continue omeprazole 20 mg daily (4) History of glioma: Code(s): Z87.898 - Personal history of other specified conditions Category: Medical Plan: s/p brain surgery 08/05/2014 at Requesting a referral to neurology because she has been taking keppra since she has her surgery and she wants to know if she still need continue this medication. (5) Hyperlipidemia: Code(s): E78.5 - Hyperlipidemia, unspecified Category: Medical Qualifiers: Hyperlipidemia type: unspecified Qualified Code(s): E78.5 - Hyperlipidemia, unspecified Plan: hx of elevated cholesterol reinforced low cholesterol diet continue atorvastatin 20 mg daily Plan Discussion Notes I have discussed the plan of care with the patient. I explained that due to her poorly controlled diabetes with an A1c of 7.6 and intolerance to metformin, I will be referring her to an music director for further management rather than adjusting her medications myself at this time. I also explained that referrals will be placed for neurology to reassess her need for Keppra, and to INJECTION MOLDING MACHINE TENDER for continued preventative care. I advised her to have fasting labs drawn at least one week before our follow-up visit in seven weeks. We discussed the importance of regular eye and foot exams for diabetes care. I will provide a letter to support her request for a closer parking space due to her lumbar arthritis. All her medications will be refilled. Patient Instructions - We will be referring you to see a few specialists: a neurologist for your seizure medication, an music director for diabetes management, and an INJECTION MOLDING MACHINE TENDER for a check-up. - Please complete your blood work at least one week before your next appointment. - You should not eat or drink anything except water for at least 8 hours before the blood test. - We will schedule you for a follow-up visit in about seven weeks to go over your lab results and check on your progress. - Make sure to continue getting your eyes checked regularly because of your diabetes. - Also, check your feet regularly for any cuts or sores, as diabetes can affect sensation and healing. - All of your current medications will be refilled and sent to the [facility] on [facility] in [place]. - I will write a letter for you to give to your housing program to request a closer parking spot. - We will let you know when the letter is ready for apple picker. Orders: Orders Hemoglobin A1c Today E11.9 - Type 2 diabetes mellitus without complications, E78.5 - Hyperlipidemia, unspecified, K21.9 - Gastro-esophageal reflux disease without esophagitis, Z87.898 - Personal history of other specified conditions, Z91.09 - Other allergy status, other than to drugs and biological substances Vitamin D 25-OH Total Today E11.9 - Type 2 diabetes mellitus without complications, E78.5 - Hyperlipidemia, unspecified, K21.9 - Gastro-esophageal reflux disease without esophagitis, Z87.898 - Personal history of other specified conditions, Z91.09 - Other allergy status, other than to drugs and biological substances Complete Blood Count Auto Diff Today E11.9 - Type 2 diabetes mellitus without complications, E78.5 - Hyperlipidemia, unspecified, K21.9 - Gastro-esophageal reflux disease without esophagitis, Z87.898 - Personal history of other specified conditions, Z91.09 - Other allergy status, other than to drugs and biological substances Comprehensive Shushan. Panel Fast Today E11.9 - Type 2 diabetes mellitus without complications, E78.5 - Hyperlipidemia, unspecified, K21.9 - Gastro-esophageal reflux disease without esophagitis, Z87.898 - Personal history of other specified conditions, Z91.09 - Other allergy status, other than to drugs and biological substances Lipid Panel Today E11.9 - Type 2 diabetes mellitus without complications, E78.5 - Hyperlipidemia, unspecified, K21.9 - Gastro-esophageal reflux disease without esophagitis, Z87.898 - Personal history of other specified conditions, Z91.09 - Other allergy status, other than to drugs and biological substances TSH reflex Free T4 Today E11.9 - Type 2 diabetes mellitus without complications, E78.5 - Hyperlipidemia, unspecified, K21.9 - Gastro-esophageal reflux disease without esophagitis, Z87.898 - Personal history of other specified conditions, Z91.09 - Other allergy status, other than to drugs and biological substances UA CC w/rflx Micro + Cult Today E11.9 - Type 2 diabetes mellitus without complications, E78.5 - Hyperlipidemia, unspecified, K21.9 - Gastro-esophageal reflux disease without esophagitis, Z87.898 - Personal history of other specified conditions, Z91.09 - Other allergy status, other than to drugs and biological substances XR DEXA axial skeleton Today M81.0 - Age-related osteoporosis without current pathological fracture Referrals Endocrinology Referral E11.9 - Type 2 diabetes mellitus without complications INJECTION MOLDING MACHINE TENDER Referral Z01.419 - Encounter for gynecological examination (general) (routine) without abnormal findings Neurology Referral Z87.898 - Personal history of other specified conditions Medications: New cetirizine (Allergy Relief (cetirizine)) 10 mg PO DAILY PRN 30 tabs 0RF allergy symptoms omeprazole 20 mg PO DAILY 90 caps 3RF sitagliptin phos-metformin 50-1,000 mg (Janumet) 1 tab PO BID 90 tabs 3RF Changed From glipizide 10 mg PO BID To glipizide 10 mg PO BID 120 tabs 3RF 60 days From levetiracetam 250 mg PO Q12H To levetiracetam 250 mg (1/2 x 500 mg) PO Q12H 90 tabs 3RF 90 days Refilled atorvastatin 20 mg PO DAILY 90 tabs 3RF atorvastatin 20 mg PO DAILY 90 tabs 3RF montelukast 10 mg PO DAILY 90 tabs 3RF
--- OUTSIDE RECORDS SUMMARY | 2025-07-22 22:55 | XMS_ITS | Patient Health Record ---
Author Organization [facility] Billing Info Address [address] [place] [address] [place] [address] Care Team Providers Care Pipe Connector Name Role Phone MCKENZIE MOON Unavailable [phone] Allergies Allergen (clinical drug ingredient) Drug/Non Drug Allergy documented on EMR Reaction Allergy Type Onset Date Status aspirin Aspirin throat swelling Drug Allergy A ctive Reason For Referral No Information Medications Medication SIG (Take, Route, Frequency, Duration) Notes Start Date End Date Status Simpson 3-6-9 Complex - as directed Orally Active [...] a never smoker Problems No Known Problems Plan Of Treatment No Information Insurance Providers Payer Name Payer Address Payer Phone Subscriber Number Group Number Insured Name Patient Relationship to Insured Coverage Start Date Coverage End Date [employer] HMO MEDICARE ADVG PLAN [address] [place], [place] [id number] ADOLFO PHILLIPS Self - patient is the insured [place] [address] [facility] JOCELIN LIGHT [id number] ADOLFO PHILLIPS Self - patient is the insured Medical (General) History Medical History History ICD Code diabetes: Hemoglobin A1c about 7 asthma: Well-controlled arthritis brain cancer Seizures: No activity since brain tumor removed Surgical History Surgery Date(Month/Year) brain tumor
--- OUTSIDE RECORDS SUMMARY | 2025-07-22 22:55 | XMS_ITS | Clinical Summary ---
Author Organization [facility] ity Address [address] [place] [address] Care Team Providers Care Food Technologist Name Role Phone Shyann Valdez MD Primary Care Provider [phone] Social History Tobacco Use Types Packs/Day Years [...] Depression Screening 08/13/2024 COVID-19 Vaccine (1 - 2024-2 6 season) 2025 Influenza Vaccine (#1) 2025 RSV [...] age to complete this topic Care Teams Food Technologist Relationship Specialty Start Date End Date Shyann Valdez MD [address] [place] [address] , [address] [facility] D/B/A: [facility] MOJGAN Bolanos PCP - General Internal Medicine 01/19/17
--- OUTSIDE RECORDS SUMMARY | 2025-07-22 22:56 | XMS_ITS | Patient Health Record ---
Author Organization [facility] Address [address] [place] [place], [place] [id number] Support Name Relationship Address Phone Ann Corona Guarantor Unknown Unavail able Reason For Referral No Information Problems Problem Type SNOMED Code ICD Code Onset Dates Problem Status W/U Status Risk Notes Problem Lumbar radiculopathy (577129218) Lumbar radiculopathy (M54.16) 11/29/19 18 Active confirmed Problem Abdominal pain (73816148) Abdominal pain (R10.9) 11/29/19 Active confirmed Problem Foot pain (19569332) Foot pain (M79.673) 11/29/19 18 Active confirmed Problem Lumbago with sciatica (682317783) Lumbago with sciatica (M54.40) 11/29/19 18 Active confirmed Problem Pain in lumbar spine (finding) (675089453) Lumbar spine pain (M54.5) 11/29/19 Active confirmed Problem Back pain (600315049) Back pain (M54.9) 11/29/19 18 Active confirmed Problem Lumbago (455315575) Lumbago (M54.5) 11/29/19 18 Active confirmed Plan Of Treatment No Information Insurance Providers Payer Name Payer Address Payer Phone Subscriber Number Group Number Insured Name Patient Relationship to Insured Coverage Start Date Coverage End Date [employer]. [address] [address] [place] [phone] [id number] Ann Corona Self - patient is the insured Medical (General) History Surgical History Surgery Date(Month/Year) Brain Surgery
--- OUTSIDE RECORDS SUMMARY | 2025-07-22 22:56 | XMS_ITS | Patient Health Record ---
Author Organization [facility] Address [address] [place] [address] Care Team Providers Care Table Inspector Name Role Phone RiddhiTiarra salgado Primary Care Provider Jason Marie [phone] Allergies Allergen (clinical drug ingredient) Drug/Non Drug Allergy documented on EMR Reaction Allergy Type Onset Date Status aspirin Aspirin Unknown Drug Allergy Active Reason For Referral No Information Medications Medication SIG (Take, Route, Frequency, Duration) Notes Start Date End Date Status Januvia 50 MG Tablet as directed Orally 01/21/2025 Active Trelegy Ellipta 100-62.5-25 MCG/ACT Aerosol Powder Breath Activated 1 puff Inhalation Once a day Active Atorvastatin Calcium 40 MG Tablet 1 tablet Orally Once a day Active glipiZIDE ER 10 MG Tablet Extended Release 24 Hour 1 tablet with breakfast Orally Once a day Active Keppra 250 MG Tablet 1 tablet Orally taqueria ry 12 hrs Active Montelukast Sodium 10 MG Tablet 1 tablet Orally Once a day Active Immunizations Vaccine Route Administration Date Status Comme nts Influenza Unknown 01/21/2025 Refused Social History Tobacco Use: Social History Observation Description Date Details (start date - stop date) Never Smoker NA - NA Social History Drug/Alcohol: Social Info Question Answer Notes AUDIT-C (Standard) Did you have a drink containing alcohol in the past year? No Points 0 Interpretation Negative Tobacco Use: Social Info Question Answer Notes Tobacco Control (Standard) Tobacco use: Nonsmoker Additional Details Category Social Info Options Details Miscellaneous: Marital status: single Occupation: disabled Problems Problem Type SNOMED Code ICD Code Onset Dates Problem Status W/U Status Risk Notes Problem Colon cancer screening (717569261) Colon cancer screening (Z12.11) Active confirmed Problem Preprocedural examination (421884122663283) Preprocedural examination (Z01.818) Active confirmed Problem History of polyp of colon (situation) (762689551) History of colon polyps (Z86.0100) Active confirmed Vital Signs Temperature 97.3 degrees Fahrenheit 01/21/2025 Blood pressure diastolic 01 mm Hg 01/21/2025 Height 62 in 01/21/2025 Blood pressure systolic 001 mm Hg 01/21/2025 Weight 149.6 lbs 01/21/2025 BMI 27.36 kg/m2 01/21/2025 Encounters Encounter Location Date Provider Diagnosis [facility] [address] [place] [phone] 01/21/2025 Jason Fraser History of colon dustin yps Z86.0100 ; Colon cancer screening Z12.11 and Preprocedural examination Z01.818 [facility] [address] [place] [phone] 09/17/2024 Jason Fraser [facility] [address] [place] [phone] 01/21/2025 Jason Fraser Assessments Encounter Date Diagnosis [...] Insured Coverage Start Date Coverage End Date [facility] [address] [address] [place] [address] [id number] ANN PHILLIPS Self - patient is the insured MEDICAID OF [facility] [address] [place] [address] [id number] CARMENCITA DONNAVLADANN Self - patient is the insured Medical (General) History Medical History History ICD Code Glioblastoma NIDDM Hyperlipidemia GERD Denies [place],CVA,,renal disease Asthma Seizures Negative colonoscopy in 2010 at [facility] She reports a colonoscopy in [place] in 2022 with removal of a polyp and was told by that doctor to have a repeat colonoscopy in 2027
--- OUTSIDE RECORDS SUMMARY | 2025-07-22 22:57 | XMS_ITS | Clinical Summary ---
Author Organization [facility] [employer] [facility] Prior to 01/10/25 Address [address] [place] [address] Care Team Providers Care Medical Doctor Md/Medical Director Name Role Phone Shyann Barrett MD Primary [...] age to complete this topic Care Teams Medical Doctor Md/Medical Director Relationship Specialty Start Date End Date Shyann Barrett MD [address] [place] [address] , [address] [facility] D/B/A: [facility] MOJGAN Bolanos [id number] PCP - General Internal Medicine 01/19/17
--- OUTSIDE RECORDS SUMMARY | 2025-07-22 22:57 | XMS_ITS | Clinical Summary ---
Author Organization [employer] Address [address] [facility] [address] 7[address] [place] [address] Care Team Providers Care Women'S Swim Coach Name Role Phone Unavailable Primary Care Provider Unavailabl e Encounters Date Type Department Care Team Description 04/23/2025 Telephone [facility] [address] [place], [place] [phone] Chris Sheikh MD from Last 3 Months Social History Tobacco [...] of 2 - PCV) 1977 Mammogram 1998 RSV Patients and Pa tients Aged 60 years or older (1 - Risk 50-74 years 1-dose series) 02/03/2008 Zoster Vaccines (1 of 2) 02/03/2008 COVID-19 Vaccine ( - 2024-2 6 season) 2025 Influenza Vaccine (#1) 2025 HIB [...] patient's age to complete this topic Insurance [facility] STANDARD [facility] DUAL COMPLETE
== END 2025-07-22 15:26 | disposition home or self-care (01) ==
LOC: HO.HMCH 14:32
DX: M47.816 Spondylosis without myelopathy or radiculopathy, lumbar region (principal); E11.9 Type 2 diabetes mellitus without complications; K21.9 Gastro-esophageal reflux disease without esophagitis; Z87.898 Personal history of other specified conditions; E78.5 Hyperlipidemia, unspecified

== ENCOUNTER → 2025-07-22 14:31 | Outpatient (BNVA) | payer OTHER, SELFPAY | PROVIDERS: PCP Internal Medicine | DX: Z76.89 Persons encountering health services in other specified circumstances (principal); M47.816 Spondylosis without myelopathy or radiculopathy, lumbar region; E11.9 Type 2 diabetes mellitus without complications; K21.9 Gastro-esophageal reflux disease without esophagitis; E78.5 Hyperlipidemia, unspecified; Z87.898 Personal history of other specified conditions; Z13.31 Encounter for screening for depression; Z13.39 Encounter for screening examination for other mental health and behavioral disorders | CPT/HCPCS: 96127; 99202 ==

== ENCOUNTER 2025-08-03 08:18 | Outpatient (REF) | payer OTHER, SELFPAY ==
--- OUTSIDE RECORDS SUMMARY | 2024-02-20 13:30 | XMS_ITS ---
Author Organization [facility] Billing Info Address [address] [place] [address] Phone [phone] Care Team Providers Care Boat Assembler Name Role Phone SARAI LOUISE, MCKENZIE Unavailable REASON FOR VISIT Hospital Follow Up Social History Sex Observation Social History Observation Description Sex Observation Female Problems No Known Problems Encounters Date Time Type Facility Location Provider Diagnosis 01:30 PM Office Visit [id number] [facility] [address] [place] [address] MCKENZIE MOON Assessments Encounter Date Diagnosis (ICD Code) Assessment Notes Treat ment Notes Section Notes 02/20/2024 Other Plan Of Treatment No Information Medical (General) History Medical History History ICD Code diabetes: Hemoglobin A1c about 7 asthma: Well-controlled arthritis brain cancer Seizures: No activity since brain tumor removed Surgical History Surgery Date(Month/Year) brain tumor Progress Notes * ADOLFO PHILLIPSDOB:[birth year] (65 yo F)Acc No.[id number]:02/20/2024 PROGRESS NOTE Patient: ADOLFO CHAVEZ Provider: Chuck MOON MD :1960 A ge:64 Y S ex:Female Date:02/20/2024 C APRIL#:[id number] Address:[address] [place] [address] [address] [place], [id number] Pcp:Damon Louise Subjective: * Chief Complaints: * [...] 02/20/2024 Generated for Randal driver/Carrie/eTransmitting on: 1 10/04/2024 08:24 AM EST History and Physical Notes * Examination Category Field Details Notes Category Notes General Examination HEENT: Head - NC/AT , [...]
--- OUTSIDE RECORDS SUMMARY | 2024-04-16 13:00 | XMS_ITS ---
Author Organization [facility] Billing Info Address [address] [place] [address] Phone [phone] Care Team Providers Care Milieu Therapist Name Role Phone SARAI LOUISE, MCKENZIE Unavailable REASON FOR VISIT GERD Social History Sex Observation Social History Observation Description Sex Observation Female Problems No Known Problems Encounters Date Time Type Facility Location Provider Diagnosis 01:00 PM Office Visit [id number] [facility] [address] [place] [address] MCKENZIE MOON Assessments Encounter Date Diagnosis (ICD Code) Assessment Notes Treat ment Notes Section Notes 04/16/2024 Other Plan Of Treatment No Information Medical (General) History Medical History History ICD Code diabetes: Hemoglobin A1c about 7 asthma: Well-controlled arthritis brain cancer Seizures: No activity since brain tumor removed Surgical History Surgery Date(Month/Year) brain tumor Progress Notes * CARMENCITA DONADOLFO THOMASDOB:[birth year] (65 yo F)Acc No.[id number]:04/16/2024 PROGRESS NOTE Patient: ADOLFO CHAVEZ Provider: Chuck MOON MD :1960 A ge:64 Y S ex:Female Date:04/16/2024 C APRIL#:[id number] Address:[address] [place] [address] [address] [place], [id number] Pcp:Damon Louise Subjective: * Chief Complaints: * [...] MD Date: 0 04/16/2024 Generated for Randal driver/Carrie/Guillerminaitting on: 1 10/04/2024 08:25 AM EST History and Physical Notes * [...]
--- NOTE | ~2025-08-03 | MM_ITS ---
EXAMINATION: DXA BONE DENSITY AXIAL HISTORY: M81.0 - Age-related osteoporosis without current pathological fracture TECHNIQUE: [employer] ([employer]) Dual energy absorptiometry (DEXA) of the lumbar spine, total left hip, and femoral neck was performed. COMPARISON: There are no prior studies for comparison. FINDINGS: The bone mineral density of the lumbar spine is 0.989 g/cm2, corresponding to a T-score of -1.6, and a Z-score of -0.1. This is indicative of osteopenia. The bone mineral density of the left total hip is 0.846 g/cm2, corresponding to a T-score of -1.3, and a Z-score of -0.1. This is indicative of osteopenia. The bone mineral density of the left femoral neck is 0.742 g/cm2, corresponding to a T-score of -2.1, and a Z-score of -0.7. This is indicative of osteopenia. FRACTURE RISK: The FRAX index suggests a risk of major osteoporotic fracture of 6.7%, and of hip fracture 1.2%. MM/XR DEXA axial skeleton IMPRESSION: Based on bone mineral density, and according to World Health Organization (WHO) criteria, the diagnosis is consistent with osteopenia. Statistically, 68% of repeat scans fall within 1 SD (+/- 0.010 g/cm2 for AP spine L1-L4) and 1 SD (+/- 0.012 g/cm2 for femur total) FRAX is a trademark of the [employer] [place] [employer] Metabolic Bone Disease, a World Health Organization (WHO) Collaborating Center. Electronically signed by: Jason Villanueva MD 08/03/2025 09:08 AM [facility]
--- OUTSIDE RECORDS SUMMARY | 2025-08-03 08:24 | XMS_ITS | Patient Health Record ---
Author Organization [facility] Billing Info Address [address] [place] [address] Phone [phone] Care Team Providers Care Federal District Clerk Name Role Phone MCKENZIE MOON MD Unavailable [phone] Allergies Allergen (clinical drug ingredient) Drug/Non Drug Allergy documented on EMR Reaction Allergy Type Onset Date Status aspirin Aspirin throat swelling Drug Allergy A ctive Reason For Referral No Information Medications Medication SIG (Take, Route, Frequency, Duration) Notes Start Date End Date Diagnosis (ICD Code) Status Brandon 3-6-9 Complex - Capsule as directed Orally Active Calcium & Magnesium Carbonates Active GlipiZIDE 10 MG Tablet 1 tablet 30 minutes before breakfast Orally Once a day; Duration: 30 day(s) Active Zyrtec Allergy 10 MG Tablet 1 tablet as needed Orally Once a day; Duration: 30 day(s) Active Keppra 500 MG Tablet 1 tablet Orally every 12 hrs; Duration: 30 day(s) Active Montelukast Sodium 10 MG Tablet 1 tablet Orally Once a day; Duration: 30 day(s) Active Social History Tobacco Use: Social History Observation Description Date Details (start date - stop date) Never Smoker NA - NA Sex Observation Social History Observation Description Sex Observation Female Social History Social History Social Info Question Answer Notes Tobacco Status: Patient is a never smoker Illicit Drug Use: Patient/Family reports: No illicit d rug use Alcohol Use: Patient does not use alcohol *DO NOT USE * Tobacco Status (CQW): Patient is Never smoker Ambulatory Status: : is independent Additional Details Category Social Info Options Details Social History Occupation/Work: homemaker Exercise: regular exercise , occasional Problems No Known Problems Plan Of Treatment No Information Insurance Providers Payer Name Payer Address Payer Phone Subscriber Number Group Number Insured Name Patient Relationship to Insured Coverage Start Date Coverage End Date [employer] [facility] [place]9 [address] [address] [place], [place] [id number] [phone] [id number] ADOLFO PHILLIPS Self - patient is the insured [place] [address] [facility] [id number] TSEADOLFO REVELES Self - patient is the insured Medical (General) History Medical History History ICD Code diabetes: Hemoglobin A1c about 7 asthma: Well-controlled arthritis brain cancer Seizures: No activity since brain tumor removed Surgical History Surgery Date(Month/Year) brain tumor
--- OUTSIDE RECORDS SUMMARY | 2025-08-03 08:24 | XMS_ITS | Clinical Summary ---
Author Organization [facility] Address [address] [place] [address] Care Team Providers Care Extract Puller Name Role Phone Shyann Valdez MD Primary Care Provider [phone] Social History Tobacco Use Types Packs/Day Years [...] age to complete this topic Care Teams Extract Puller Relationship Specialty Start Date End Date Shyann Valdez MD [address] [place] [address] , [address] [facility] D/B/A: [facility] MOJGAN Bolanos PCP - General Internal Medicine 01/19/17
--- OUTSIDE RECORDS SUMMARY | 2025-08-03 08:25 | XMS_ITS | Clinical Summary ---
Author Organization [facility] Prior to 01/10/25 Address [address] [place] [address] Care Team Providers Care Community Health Advisor Name Role Phone Shyann Barrett MD Primary [...] age to complete this topic Care Teams Community Health Advisor Relationship Specialty Start Date End Date Shyann Barrett MD [address] [place] [address] , [address] [facility] D/B/A: [facility] MOJGAN Bolanos [id number] PCP - General Internal Medicine 01/19/17
--- OUTSIDE RECORDS SUMMARY | 2025-08-03 08:25 | XMS_ITS | Patient Health Record ---
Author Organization Known [facility] Address [address] [place] [place], [place] [address] Support Name Relationship Address Phone Ann Corona Guarantor Unknown Unavail able Reason For Referral No Information Problems Problem Type SNOMED Code ICD Code Onset Dates Problem Status W/U Status Risk Notes Problem Lumbar radiculopathy (137309632) Lumbar radiculopathy (M54.16) 11/29/19 18 Active confirmed Problem Abdominal pain (38242088) Abdominal pain (R10.9) 11/29/19 Active confirmed Problem Foot pain (51884963) Foot pain (M79.673) 11/29/19 18 Active confirmed Problem Lumbago with sciatica (691421651) Lumbago with sciatica (M54.40) 11/29/19 18 Active confirmed Problem Pain in lumbar spine (finding) (497992204) Lumbar spine pain (M54.5) 11/29/19 Active confirmed Problem Back pain (761736425) Back pain (M54.9) 11/29/19 18 Active confirmed Problem Lumbago (250418504) Lumbago (M54.5) 11/29/19 18 Active confirmed Plan Of Treatment No Information Insurance Providers Payer Name Payer Address Payer Phone Subscriber Number Group Number Insured Name Patient Relationship to Insured Coverage Start Date Coverage End Date [employer]. [address] [address] [place] [address] [phone] [id number] Ann Corona Self - patient is the insured Medical (General) History Surgical History Surgery Date(Month/Year) Brain Surgery
--- OUTSIDE RECORDS SUMMARY | 2025-08-03 08:25 | XMS_ITS | Clinical Summary ---
Author Organization [employer] Address [address] [facility] 7[address] [place] [address] Care Team Providers Care Principal Statistical Programmer Name Role Phone Unavailable Primary Care Provider Unavailabl e Social History Tobacco Use Types Packs/Day Years [...] patient's age to complete this topic Insurance [facility] STANDARD [facility] DUAL COMPLETE
--- OUTSIDE RECORDS SUMMARY | 2025-08-03 08:25 | XMS_ITS | Patient Health Record ---
Author Organization [facility] Address [address] [place] [address] Care Team Providers Care Communications Field Technician Name Role Phone RiddhiTiarra salgado Primary Care Provider Jason Marie [phone] Allergies Allergen (clinical drug ingredient) Drug/Non Drug [...] Status Risk Notes Problem Colon cancer screening (707314818) Colon cancer screening (Z12.11) Active confirmed Problem Preprocedural examination (212279550682308) Preprocedural examination (Z01.818) Active confirmed Problem History of polyp of colon (situation) (043231982) History of colon polyps (Z86.0100) Active confirmed Vital Signs Temperature 97.3 degrees Fahrenheit 01/21/2025 Blood pressure diastolic 01 mm Hg 01/21/2025 Height 62 in 01/21/2025 Blood pressure systolic 001 mm Hg 01/21/2025 Weight 149.6 lbs 01/21/2025 BMI 27.36 kg/m2 01/21/2025 Encounters Encounter Location Date Provider Diagnosis [facility] [address] [place] [phone] 01/21/2025 Jason Fraser History of colon dustin yps Z86.0100 ; Colon cancer screening Z12.11 and Preprocedural examination Z01.818 [facility] [address] [place] [phone] 09/17/2024 Jason Fraser [facility] [address] [place] [phone] 01/21/2025 Jason Fraser Assessments Encounter Date Diagnosis [...] Insured Coverage Start Date Coverage End Date [facility] [address] [address] [place] [address] [id number] ANN PHILLIPS Self - patient is the insured MEDICAID OF [facility] [address] [place] [address] [id number] CARMENCITA DONNAVLADANN Self - patient is the insured Medical (General) History Medical History History ICD Code Glioblastoma NIDDM Hyperlipidemia GERD Denies [place],CVA,,renal disease Asthma Seizures Negative colonoscopy in 2010 at [facility] She reports a colonoscopy in [place] in 2022 with removal of a polyp and was told by that doctor to have a repeat colonoscopy in 2027
== END 2025-08-03 08:19 | disposition home or self-care (01) ==
LOC: HO.MAMMO 08:18
DX: M81.0 Age-related osteoporosis without current pathological fracture (principal)
CPT/HCPCS: 77080

== ENCOUNTER → 2025-08-03 08:45 | Outpatient (BNV) | payer OTHER, SELFPAY | PROVIDERS: Visit Provider Radiology Diagnostic Radiology | DX: E28.39 Other primary ovarian failure (principal) | CPT/HCPCS: 77080 ==